=== PATIENT | male | born 1985 | race Caucasian/White ===

== ENCOUNTER 2017-05-15 19:39 | Emergency (ER) | payer MEDICAID ==
[~2017-05-15] VITALS: Ht 167.6 cm; Wt 70.0 kg
[~2017-05-15 19:39] MED LIST: ASA; LISINOPRIL; METO25TA6 PO
[2017-05-15] MEDS ORDERED: ADENOSINE 3 MG/ML 2ML VIAL IV ONE (20:09)
[2017-05-15] MEDS ORDERED: LORAZEPAM 2MG/ML CPJ ONE (20:12)
[2017-05-15] MEDS ORDERED: ADENOSINE 6 MG/2ML SYRINGE IV ONE ×2 (20:20→20:24)
[2017-05-15] MEDS ORDERED: FENTANYL CITRATE/PF 50MCG/ML 2ML VIAL ONE (20:35)
[2017-05-15] MEDS ORDERED: PROPOFOL 200MG/20ML VIAL IV ONE (20:45)
[2017-05-15 20:49] LABS: BASOPHILS % 1.1 % (0.0-2.0); EOSINOPHILS % 3.2 % (0.0-5.0); HEMATOCRIT. 40.8 % (42.0-52.0); HEMOGLOBIN. 13.4 g/dL (14.0-18.0); LYMPHOCYTES % 35.2 % (20.0-50.0); MEAN CORPUSCULAR HEMOGLOBIN 27.8 pg (28.0-32.0); MEAN CORPUSCULAR VOLUME 84.9 fL (80.0-94.0); MEAN PLATELET VOLUME 8.9 fl (7.4-10.4); MONOCYTES % 11.3 % (2.0-8.0); NEUTROPHILS % 49.2 % (40.0-76.0); PLATELET 174 x1000/uL (130-400); RED CELL DISTRIBUTION WIDTH 14.4 % (11.6-14.6)
[2017-05-15 20:53] LABS: PROTHROMBIN TIME 10.7 sec (9.4-11.6)
[2017-05-15 20:56] LABS: CHLORIDE 105 mEq/L (98-107)
[2017-05-15] MEDS ORDERED: AMIODARONE HCL 50MG/ML 3ML VIAL IV ONE ×2 (20:57→21:00)
[2017-05-15] MEDS ORDERED: AMIODARONE HCL 900 MG in DEXT 5% WATER 482 ML IV SCH (21:00)
[2017-05-15 23:00] VITALS: BP 122/77
== END 2017-05-15 23:00 | disposition left against medical advice (07) ==
LOC: ER 19:39
DX: I47.1 Supraventricular tachycardia (principal); I47.2 Ventricular tachycardia; D64.9 Anemia, unspecified; R79.89 Other specified abnormal findings of blood chemistry; Z95.2 Presence of prosthetic heart valve; Z83.3 Family history of diabetes mellitus
CPT/HCPCS: 36415; 71045; 80053; 83880; 84484; 85025; 85610; 93005; 96374; 99152; 99291; J0153; J0282; J2060; J3010; Z7610; J2704

== ENCOUNTER 2017-06-04 03:22 | Emergency (ER) | payer MEDICAID ==
[~2017-06-04] VITALS: Ht 167.6 cm; Wt 73.0 kg
[2017-06-04] MEDS ORDERED: LORAZEPAM 2MG/ML CPJ IV ONE (04:45)
[2017-06-04 05:05] LABS: BASOPHILS % 1.4 % (0.0-2.0); EOSINOPHILS % 2.8 % (0.0-5.0); HEMATOCRIT. 41.3 % (42.0-52.0); HEMOGLOBIN. 14.1 g/dL (14.0-18.0); LYMPHOCYTES % 24.5 % (20.0-50.0); MEAN CORPUSCULAR HEMOGLOBIN 28.3 pg (28.0-32.0); MEAN CORPUSCULAR VOLUME 83.2 fL (80.0-94.0); MEAN PLATELET VOLUME 7.9 fl (7.4-10.4); MONOCYTES % 9.4 % (2.0-8.0); NEUTROPHILS % 61.9 % (40.0-76.0); PLATELET 216 x1000/uL (130-400); RED BLOOD CELL COUNT 4.96 mill/uL (4.7-6.1); RED CELL DISTRIBUTION WIDTH 14.5 % (11.6-14.6)
[2017-06-04 05:07] LABS: *AMPHETAMINES SCREEN URINE NEGATIVE (NEGATIVE); *BARBITURATES SCREEN URINE NEGATIVE (NEGATIVE); *BENZODIAZEPINES SCREEN URINE NEGATIVE (NEGATIVE); *COCAINE SCREEN URINE NEGATIVE (NEGATIVE); CANNABINOID URINE SCREEN NEGATIVE (NEGATIVE); METHADONE URINE SCREEN NEGATIVE (NEGATIVE); OPIATES URINE SCREEN NEGATIVE (NEGATIVE); PHENCYCLIDINE URINE SCREEN NEGATIVE (NEGATIVE)
[2017-06-04 05:17] LABS: CHLORIDE 101 mEq/L (98-107)
[2017-06-04 07:20] VITALS: BP 125/72
== END 2017-06-04 07:39 | disposition home or self-care (01) ==
LOC: ER 03:22
DX: R07.89 Other chest pain (principal); I11.9 Hypertensive heart disease without heart failure; I47.1 Supraventricular tachycardia; Z95.1 Presence of aortocoronary bypass graft
CPT/HCPCS: 36415; 71045; 80053; 80305; 84484; 85025; 93005; 96374; 99285; J2060; Z7610

== ENCOUNTER 2019-08-15 20:33 | Emergency (ER) | payer MEDICAID ==
[~2019-08-15] VITALS: Ht 167.6 cm; Wt 74.0 kg
[2019-08-15] MEDS ORDERED: SODIUM CHLORIDE 0.9% 1,000 ML IV ONE (20:40)
[2019-08-15] MEDS ORDERED: ASPIRIN 325MG EC TABLET PO ONE (20:45)
[2019-08-15 22:02] LABS: BASOPHILS % 0.5 % (0.0-2.0); EOSINOPHILS % 4.9 % (0.0-5.0); HEMATOCRIT. 38.7 % (42.0-52.0); LYMPHOCYTES % 19.6 % (20.0-50.0); MEAN CORPUSCULAR HEMOGLOBIN 27.9 pg (28.0-32.0); MEAN CORPUSCULAR VOLUME 82.8 fL (80.0-94.0); MEAN PLATELET VOLUME 8.7 fl (7.4-10.4); MONOCYTES % 9.6 % (2.0-8.0); NEUTROPHILS % 65.4 % (40.0-76.0); PLATELET 136 x1000/uL (130-400); RED BLOOD CELL COUNT 4.67 mill/uL (4.7-6.1); RED CELL DISTRIBUTION WIDTH 13.9 % (11.6-14.6)
[2019-08-15 22:08] LABS: CHLORIDE 106 mEq/L (98-107)
[2019-08-15 22:10] LABS: PROTHROMBIN TIME 10.8 sec (9.6-11.0)
[2019-08-15 22:12] LABS: ETHANOL BLOOD < 10 mg/dL
[2019-08-15 22:50] VITALS: BP 126/80
== END 2019-08-15 23:14 | disposition left against medical advice (07) ==
LOC: ER 20:33 → CANBEDREQ 08-16 02:05
DX: I47.2 Ventricular tachycardia (principal); R07.89 Other chest pain; I11.9 Hypertensive heart disease without heart failure; Z95.1 Presence of aortocoronary bypass graft
CPT/HCPCS: 36415; 71045; 80053; 80320; 83735; 83880; 84484; 85025; 85610; 93005; 99285; J7030; G0480

== ENCOUNTER 2019-10-10 19:53 | Emergency (ER) | payer MEDICAID ==
[~2019-10-10] VITALS: Ht 177.8 cm; Wt 80.0 kg
[2019-10-10] MEDS ORDERED: WATER IV PRN ×2 (20:00→20:15)
[2019-10-10] MEDS ORDERED: DEXT 5% IV PRN ×2 (20:00→20:15)
[2019-10-10] MEDS ORDERED: PROCAINAMIDE HCL IV PRN ×2 (20:00→20:15)
[2019-10-10] MEDS ORDERED: PROCAINAMIDE 500 MG/ML INJ NR (20:15)
[2019-10-10] MEDS ORDERED: METOPROLOL TARTRATE 5MG/5ML VIAL IV ONE ×2 (20:16→20:21)
[2019-10-10 20:26] LABS: EOSINOPHILS % 5.4 % (0.0-5.0); HEMATOCRIT. 39.9 % (42.0-52.0); HEMOGLOBIN. 13.2 g/dL (14.0-18.0); MEAN CORPUSCULAR HEMOGLOBIN 27.2 pg (28.0-32.0); MEAN CORPUSCULAR VOLUME 82.3 fL (80.0-94.0); MEAN PLATELET VOLUME 8.5 fl (7.4-10.4); MONOCYTES % 10.3 % (2.0-8.0); NEUTROPHILS % 48.3 % (40.0-76.0); PLATELET 159 x1000/uL (130-400); RED BLOOD CELL COUNT 4.85 mill/uL (4.7-6.1); RED CELL DISTRIBUTION WIDTH 14.4 % (11.6-14.6)
[2019-10-10] MEDS ORDERED: METOPROLOL TARTRATE 25MG TABLET PO ONE (20:30)
[2019-10-10 20:32] LABS: CHLORIDE 105 mEq/L (98-107)
[2019-10-10] MEDS ORDERED: POTASSIUM CHLORIDE 20MEQ/PACKET PO ONE (21:00)
[2019-10-10] MEDS ORDERED: CALCIUM GLUCONATE 100MG/ML 10ML VIAL IV ONE (21:00)
[2019-10-10 22:58] VITALS: BP 110/62
== END 2019-10-10 23:20 | disposition left against medical advice (07) ==
LOC: ER 19:53 → CANBEDREQ 10-11 01:19
DX: I47.1 Supraventricular tachycardia (principal); E87.6 Hypokalemia; I51.9 Heart disease, unspecified; Z95.1 Presence of aortocoronary bypass graft; Z79.01 Long term (current) use of anticoagulants
CPT/HCPCS: 36415; 71045; 80053; 83735; 83880; 84484; 85025; 93005; 96374; 99285; J0610; J2690; J3490; J7060

== ENCOUNTER 2019-11-14 19:24 | Emergency (ER) | payer MEDICAID ==
[~2019-11-14] VITALS: Ht 165.1 cm; Wt 75.0 kg
[2019-11-14] MEDS ORDERED: SODIUM CHLORIDE 0.9% 1,000 ML IV ONE (19:39)
[2019-11-14] MEDS: ONDANSETRON HCL 4MG/2ML INJ IV STA ×2 (19:39→20:16)
[2019-11-14] MEDS: MORPHINE SULFATE 4 MG/ML CPJ (NOT FOR IM USE) IV STA ×2 (19:39→20:16)
[2019-11-14] MEDS ORDERED: MIDAZOLAM HCL 2 MG/2 ML VIAL IV ONE (19:45)
[2019-11-14] MEDS ORDERED: MORPHINE SULFATE 4 MG/ML CPJ (NOT FOR IM USE) IV ONE (19:48)
[2019-11-14] MEDS ORDERED: MIDAZOLAM HCL 2 MG/2 ML VIAL ONE (19:50)
[2019-11-14 19:56] LABS: BASOPHILS % 0.6 % (0.0-2.0); EOSINOPHILS % 2.5 % (0.0-5.0); HEMATOCRIT. 45.6 % (42.0-52.0); LYMPHOCYTES % 28.5 % (20.0-50.0); MEAN CORPUSCULAR HEMOGLOBIN 27.5 pg (28.0-32.0); MEAN CORPUSCULAR VOLUME 83.3 fL (80.0-94.0); MEAN PLATELET VOLUME 8.4 fl (7.4-10.4); MONOCYTES % 9.6 % (2.0-8.0); NEUTROPHILS % 58.8 % (40.0-76.0); PLATELET 182 x1000/uL (130-400); RED BLOOD CELL COUNT 5.47 mill/uL (4.7-6.1)
[2019-11-14] MEDS ORDERED: METOPROLOL TARTRATE 50MG TABLET PO ONE (20:00)
[2019-11-14 20:02] LABS: CHLORIDE 104 mEq/L (98-107)
[2019-11-14 20:05] LABS: PROTHROMBIN TIME 10.5 sec (9.6-11.0)
[2019-11-14 20:07] LABS: ETHANOL BLOOD < 10 mg/dL
[2019-11-14 21:11] VITALS: BP 103/49
== END 2019-11-14 21:13 | disposition home or self-care (01) ==
LOC: ER 19:29
DX: R00.0 Tachycardia, unspecified (principal); Z98.890 Other specified postprocedural states
CPT/HCPCS: 36415; 71045; 80053; 80320; 84484; 85025; 85610; 93005; 96361; 96374; 99285; J2250; J2270; J2405; J7030; G0480

== ENCOUNTER 2019-12-01 22:36 | Emergency (ER) | payer MEDICAID ==
[~2019-12-01] VITALS: Ht 165.1 cm; Wt 78.0 kg
[2019-12-01 22:53] VITALS: BP 143/92
[2019-12-01] MEDS ORDERED: BACITRACIN ZINC OINT UDPKT TOP ONE (23:45)
[2019-12-01] MEDS ORDERED: LIDOCAINE 1%/EPI 1:100,000 10 ML VIAL IJ ONE (23:45)
[2019-12-01] MEDS ORDERED: TETANUS, DIPHTHERIA, PERTUSSIS VAC/PF 0.5ML (>7YR OLD) IM ONE (23:45)
== END 2019-12-02 02:07 | disposition left against medical advice (07) ==
LOC: ER 22:36
DX: S61.511A Laceration without foreign body of right wrist, initial encounter (principal); X99.1XXA Assault by knife, initial encounter; Y93.89 Activity, other specified; I11.9 Hypertensive heart disease without heart failure; Y92.89 Other specified places as the place of occurrence of the external cause; Z23 Encounter for immunization
CPT/HCPCS: 90471; 90715; 99283; J3490

== ENCOUNTER 2022-04-01 17:15 | Emergency (ER) | payer MEDICAID ==
[~2022-04-01] VITALS: Ht 167.6 cm; Wt 75.0 kg
[2022-04-01 17:44] VITALS: BP 117/80
[2022-04-01] MEDS ORDERED: ACETAMINOPHEN 325MG TABLET PO ONE (18:45)
[2022-04-01] MEDS ORDERED: TETANUS, DIPHTHERIA, PERTUSSIS VAC/PF 0.5ML (>10YR OLD) IM ONE (18:45)
[2022-04-01] MEDS ORDERED: AMOXICILLIN/POTASSIUM CLAVULANATE 875/125MG TAB PO ONE (19:15)
[2022-04-01] MEDS ORDERED: ACET-2708 MT (19:33)
[2022-04-01] MEDS ORDERED: AMOX1TAB16 MT (19:33)
== END 2022-04-01 19:39 | disposition home or self-care (01) ==
LOC: ER 17:15
DX: M76.01 Gluteal tendinitis, right hip (principal); I10 Essential (primary) hypertension; Z98.890 Other specified postprocedural states; Z79.899 Other long term (current) drug therapy
CPT/HCPCS: 72170; 90471; 90715; 99283; Z7610

== ENCOUNTER → 2022-09-22 | Emergency (ER) | payer MEDICAID ==
[~2022-09-22] VITALS: Ht 172.7 cm; Wt 68.0 kg
[~2022-09-22] MED LIST changes: +ACET-2708 MT; +AMOX1TAB16 MT; +HYDROCODONE/ACETAMINOPHEN 5/325MG TABLET PO NR; +HYDROCODONE/ACETAMINOPHEN 5/325MG TABLET PO ONE; +LIDOCAINE 1%/EPI 1:200,000 10 ML VIAL IJ NR; +LIDOCAINE HCL/EPINEPHRINE 1%-EPI 1:100,000 50 ML VIAL INFIL ONE; +TETANUS, DIPHTHERIA, PERTUSSIS VAC/PF 0.5ML (>10YR OLD) IM ONE; +TRANEXAMIC ACID 1,000 MG/10 ML IV ONE; +TRANEXAMIC ACID 1,000 MG/10 ML TP ONE
[2022-09-22 17:02] VITALS: O2SAT 99
[2022-09-22 20:04] VITALS: BP 130/74; PULSE 89; RESP 20; TEMP 98
== END | disposition home or self-care (01) ==
LOC: ER 17:00
DX: S61.216A Laceration without foreign body of right little finger without damage to nail, initial encounter (principal); E11.9 Type 2 diabetes mellitus without complications; I10 Essential (primary) hypertension; Z79.899 Other long term (current) drug therapy; W45.8XXA Other foreign body or object entering through skin, initial encounter; Y93.89 Activity, other specified; Y92.89 Other specified places as the place of occurrence of the external cause; Y99.8 Other external cause status
CPT/HCPCS: 73140; 90715; 12001; 90471; 96374; 99283; Z7610 ×2

== ENCOUNTER 2024-10-30 17:27 | Emergency (ER) | payer MEDICAID ==
[~2024-10-30 17:27] MED LIST changes: -HYDROCODONE/ACETAMINOPHEN 5/325MG TABLET PO NR; -HYDROCODONE/ACETAMINOPHEN 5/325MG TABLET PO ONE; -LIDOCAINE 1%/EPI 1:200,000 10 ML VIAL IJ NR; -LIDOCAINE HCL/EPINEPHRINE 1%-EPI 1:100,000 50 ML VIAL INFIL ONE; -TETANUS, DIPHTHERIA, PERTUSSIS VAC/PF 0.5ML (>10YR OLD) IM ONE; -TRANEXAMIC ACID 1,000 MG/10 ML IV ONE; -TRANEXAMIC ACID 1,000 MG/10 ML TP ONE
== END 2024-10-30 18:17 | disposition left against medical advice (07) ==
LOC: ER 17:27
DX: R07.89 Other chest pain (principal); Z53.21 Procedure and treatment not carried out due to patient leaving prior to being seen by health care provider